=== PATIENT | male | born 1970 | race Caucasian/White ===

== ENCOUNTER 2018-02-11 22:27 | Inpatient (IN) | payer OTHER ==
[~2018-02-11] VITALS: Ht 170.2 cm; Wt 62.0 kg
[2018-02-11 23:23] LABS: PTT 44.2 SEC (25-37)
[2018-02-11 23:26] LABS: ALBUMIN 2.8 g/dL (3.2-4.8); CHLORIDE 70 mEq/L (99-109); POTASSIUM 3.4 mEq/L (3.7-5.4)
[2018-02-11 23:29] LABS: GLUCOSE 105 mg/dL (70-99); TOTAL PROTEIN 5.1 g/dL (6.4-8.3)
[2018-02-11 23:31] LABS: SERUM ETHYL ALCOHOL < 10 mg/dL
[2018-02-11 23:32] LABS: CREATININE 0.8 mg/dL (0.6-1.3)
[2018-02-11 23:33] LABS: ALKALINE PHOSPHATASE 380 IU/L (3-129)
[2018-02-11 23:34] LABS: AST (GOT) 502 IU/L (2-34); UREA NITROGEN (BUN) 11 mg/dL (9-23)
[2018-02-11 23:36] LABS: ACETAMINOPHEN (TYLENOL) < 10 mcg/mL (10-30); ALT (GPT) 132 IU/L (3-49); SALICYLATE < 5.0 MG/DL (15-30); TROP-I INTERPRETATION NEGATIVE; TROPONIN-I 0.01 ng/mL (0.0-0.30)
[2018-02-11 23:37] LABS: LIPASE 57 U/L (1.0-51.0)
[2018-02-11 23:40] LABS: GFR ESTIMATE (CALCULATED) > 59 mL/min/ (58.99-99999); SODIUM 117 mEq/L (136-147)
[2018-02-12] VITALS (17 sets, daily range): BP systolic 93–125; BP diastolic 66–93
[2018-02-12 01:08] LABS: MCH 35.8 PG (29.0-34.0); MCV 94.3 FL (86-99); NRBC (%) 0.2 /100 WBC (0-0); RBC DIS.WIDTH-CV 17.2 % (11.8-14.6); RED BLOOD COUNT 3.35 M/uL (4.00-5.50); WHITE BLOOD COUNT 10.6 K/uL (4.1-10.2)
[2018-02-12 01:12] LABS: HEMATOCRIT 38.2 % (38.0-50.0)
[2018-02-12 01:16] LABS: PLATELET COUNT 130 K/uL (156-360)
[2018-02-12 02:21] LABS: MAGNESIUM 1.5 mg/dL (1.3-2.7)
[2018-02-12 09:05] LABS: CHLORIDE 81 MEQ/L (99-109); CREATININE 0.8 MG/DL (0.6-1.3); GFR ESTIMATE (CALCULATED) > 59 mL/min/ (58.99-99999); GLUCOSE 79 mg/dL (70-99); POTASSIUM 3.2 MEQ/L (3.7-5.4); SODIUM 120 MEQ/L (136-147); UREA NITROGEN (BUN) 11 mg/dL (9-23)
[2018-02-12 09:57] LABS: MAGNESIUM 1.7 mg/dl (1.3-2.7)
[2018-02-12 15:05] LABS: PTT 44.1 SEC (25-37)
[2018-02-12 15:36] LABS: CHLORIDE 83 MEQ/L (99-109); CREATININE 0.7 MG/DL (0.6-1.3); GFR ESTIMATE (CALCULATED) > 59 mL/min/ (58.99-99999); GLUCOSE 76 mg/dL (70-99); POTASSIUM 3.3 MEQ/L (3.7-5.4); UREA NITROGEN (BUN) 10 mg/dL (9-23)
[2018-02-12 15:37] LABS: SODIUM 118 MEQ/L (136-147)
[2018-02-12 18:11] LABS: UR CREATININE CONCENTRATION 91.3 MG/DL
[2018-02-12 20:21] LABS: CHLORIDE 85 MEQ/L (99-109); CREATININE 0.8 MG/DL (0.6-1.3); GFR ESTIMATE (CALCULATED) > 59 mL/min/ (58.99-99999); GLUCOSE 94 mg/dL (70-99); POTASSIUM 3.2 MEQ/L (3.7-5.4); SODIUM 121 MEQ/L (136-147); UREA NITROGEN (BUN) 10 mg/dL (9-23)
[2018-02-13] VITALS (19 sets, daily range): BP systolic 85–114; BP diastolic 37–83
[2018-02-13 00:42] LABS: HEMATOCRIT 27.7 % (38.0-50.0); HEMOGLOBIN 10.4 G/DL (12.5-16.6); MCHC 37.5 G/DL (30.0-36.0); MCV 95.8 FL (86-99); NRBC (%) 0.3 /100 WBC (0-0); PLATELET COUNT 118 K/uL (156-360); RBC DIS.WIDTH-CV 17.7 % (11.8-14.6); RBC DIS.WIDTH-SD 62.2 % (39-53); RED BLOOD COUNT 2.89 M/uL (4.00-5.50); WHITE BLOOD COUNT 9.8 K/uL (4.1-10.2)
[2018-02-13 00:59] LABS: POTASSIUM 3.7 mEq/L (3.7-5.4); SODIUM 125 mEq/L (136-147)
[2018-02-13 01:00] LABS: CHLORIDE 87 mEq/L (99-109)
[2018-02-13 01:01] LABS: GLUCOSE 83 mg/dL (70-99)
[2018-02-13 01:05] LABS: CREATININE 0.7 mg/dL (0.6-1.3); GFR ESTIMATE (CALCULATED) > 59 mL/min/ (58.99-99999)
[2018-02-13 01:06] LABS: UREA NITROGEN (BUN) 10 mg/dL (9-23)
[2018-02-13 05:41] LABS: INTER. NORMALIZED RATIO 2.5
[2018-02-13 06:16] LABS: ALBUMIN 2.3 G/DL (3.2-4.8); ALKALINE PHOSPHATASE 234 IU/L (3-129); ALT (GPT) 90 IU/L (3-49); AST (GOT) 347 IU/L (2-34); CHLORIDE 91 MEQ/L (99-109); CREATININE 0.7 MG/DL (0.6-1.3); DIRECT BILIRUBIN 18.8 mg/dL (0.0-0.3); GFR ESTIMATE (CALCULATED) > 59 mL/min/ (58.99-99999); GLUCOSE 97 mg/dL (70-99); POTASSIUM 3.4 MEQ/L (3.7-5.4); SODIUM 127 MEQ/L (136-147); TOTAL BILIRUBIN 26.1 MG/DL (0.0-1.0); UREA NITROGEN (BUN) 10 mg/dL (9-23)
[2018-02-13 23:22] LABS: CHLORIDE 94 mEq/L (99-109); SODIUM 130 mEq/L (136-147)
[2018-02-13 23:23] LABS: GLUCOSE 145 mg/dL (70-99)
[2018-02-13 23:27] LABS: CREATININE 0.7 mg/dL (0.6-1.3); GFR ESTIMATE (CALCULATED) > 59 mL/min/ (58.99-99999)
[2018-02-13 23:28] LABS: UREA NITROGEN (BUN) 7 mg/dL (9-23)
[2018-02-13 23:31] LABS: POTASSIUM 2.7 mEq/L (3.7-5.4)
[2018-02-14] VITALS (19 sets, daily range): BP systolic 79–130; BP diastolic 58–92
[2018-02-14 06:14] LABS: PTT 36.8 SEC (25-37)
[2018-02-14 06:19] LABS: ALBUMIN 2.3 G/DL (3.2-4.8); ALKALINE PHOSPHATASE 223 IU/L (3-129); ALT (GPT) 80 IU/L (3-49); AST (GOT) 274 IU/L (2-34); CHLORIDE 93 MEQ/L (99-109); CREATININE 0.7 MG/DL (0.6-1.3); GFR ESTIMATE (CALCULATED) > 59 mL/min/ (58.99-99999); POTASSIUM 3.2 MEQ/L (3.7-5.4); SODIUM 129 MEQ/L (136-147); TOTAL BILIRUBIN 26.5 MG/DL (0.0-1.0); TOTAL PROTEIN 3.8 G/DL (6.4-8.3); UREA NITROGEN (BUN) 6 mg/dL (9-23)
[2018-02-14 06:25] LABS: GLUCOSE 106 mg/dL (70-99)
[2018-02-14 12:03] LABS: HEPATITIS B SURFACE ANTIGEN Nonreactive
[2018-02-14 12:04] LABS: ANTI-HEPATITIS A VIRUS (IGM) Nonreactive; HEPATITIS C ANTIBODY Nonreactive
[2018-02-14 12:06] LABS: ANTI-HEPATITIS B CORE (IGM) Nonreactive
[2018-02-14 13:44] LABS: CHLORIDE 96 MEQ/L (99-109); CREATININE 0.7 MG/DL (0.6-1.3); GFR ESTIMATE (CALCULATED) > 59 mL/min/ (58.99-99999); GLUCOSE 109 mg/dL (70-99); SODIUM 130 MEQ/L (136-147); UREA NITROGEN (BUN) 5 mg/dL (9-23)
[2018-02-14 13:45] LABS: POTASSIUM 4.1 MEQ/L (3.7-5.4)
[2018-02-14 14:59] LABS: TYPE OF FLUID PERITONEAL
[2018-02-14 15:25] LABS: BODY FLUID AMYLASE 50 U/L
[2018-02-14 15:53] LABS: BODY FLUID PROTEIN < 3.0 G/DL
[2018-02-14 15:54] LABS: APPEARANCE YELLOW-CLEAR; BODY FLUID EOSINOPHILS 0 % (0-25); BODY FLUID RBC'S < 1000 /MM^3 (0-100); BODY FLUID WBC'S 36 /MM^3 (0-500); MONONUCLEAR WBC'S 76 %; POLYNUCLEAR WBC'S 24 % (0-25)
[2018-02-14 18:46] LABS: CHLORIDE 97 MEQ/L (99-109); CREATININE 0.8 MG/DL (0.6-1.3); GFR ESTIMATE (CALCULATED) > 59 mL/min/ (58.99-99999); GLUCOSE 93 mg/dL (70-99); POTASSIUM 3.9 MEQ/L (3.7-5.4); SODIUM 131 MEQ/L (136-147); UREA NITROGEN (BUN) 5 mg/dL (9-23)
[2018-02-15 05:06] VITALS: BP 95/65
[2018-02-15 05:51] LABS: HEMATOCRIT 26.1 % (38.0-50.0); HEMOGLOBIN 9.2 G/DL (12.5-16.6); MCH 35.5 PG (29.0-34.0); MCHC 35.2 G/DL (30.0-36.0); MCV 100.8 FL (86-99); NRBC (%) 0.3 /100 WBC (0-0); PLATELET COUNT 98 K/uL (156-360); RBC DIS.WIDTH-CV 19.4 % (11.8-14.6); RBC DIS.WIDTH-SD 70.3 % (39-53); RED BLOOD COUNT 2.59 M/uL (4.00-5.50); WHITE BLOOD COUNT 9.4 K/uL (4.1-10.2)
[2018-02-15 06:04] LABS: ALBUMIN 2.4 G/DL (3.2-4.8); ALKALINE PHOSPHATASE 179 IU/L (3-129); ALT (GPT) 60 IU/L (3-49); AST (GOT) 195 IU/L (2-34); CHLORIDE 99 MEQ/L (99-109); CREATININE 0.7 MG/DL (0.6-1.3); GFR ESTIMATE (CALCULATED) > 59 mL/min/ (58.99-99999); GLUCOSE 93 mg/dL (70-99); POTASSIUM 3.2 MEQ/L (3.7-5.4); SODIUM 134 MEQ/L (136-147); TOTAL BILIRUBIN 24.4 MG/DL (0.0-1.0); TOTAL PROTEIN 3.9 G/DL (6.4-8.3); UREA NITROGEN (BUN) 5 mg/dL (9-23)
[2018-02-15 07:09] VITALS: BP 101/62
[2018-02-15 11:49] VITALS: BP 93/64
[2018-02-15 14:31] VITALS: BP 101/74
[2018-02-15 19:40] VITALS: BP 108/78
[2018-02-15 23:44] VITALS: BP 106/70
[2018-02-16 03:01] LABS: ALBUMIN 2.3 g/dL (3.2-4.8); CHLORIDE 102 mEq/L (99-109); POTASSIUM 3.6 mEq/L (3.7-5.4); SODIUM 135 mEq/L (136-147)
[2018-02-16 03:04] LABS: GLUCOSE 111 mg/dL (70-99); TOTAL PROTEIN 4.1 g/dL (6.4-8.3)
[2018-02-16 03:07] LABS: CREATININE 0.7 mg/dL (0.6-1.3); GFR ESTIMATE (CALCULATED) > 59 mL/min/ (58.99-99999)
[2018-02-16 03:08] LABS: UREA NITROGEN (BUN) 4 mg/dL (9-23)
[2018-02-16 03:10] LABS: ALT (GPT) 70 IU/L (3-49)
[2018-02-16 03:13] LABS: ALKALINE PHOSPHATASE 229 IU/L (3-129); AST (GOT) 197 IU/L (2-34)
[2018-02-16 03:17] LABS: TOTAL BILIRUBIN 26.8 mg/dL (0.0-1.0)
[2018-02-16 03:30] VITALS: BP 112/74
[2018-02-16 07:50] VITALS: BP 98/68
[2018-02-16 09:08] LABS: MAGNESIUM 1.7 mg/dL (1.3-2.7)
[2018-02-16 10:44] LABS: PHOSPHORUS < 1.0 mg/dL (2.5-4.9)
[2018-02-16 12:25] VITALS: BP 99/68
[2018-02-16 16:38] VITALS: BP 105/73
[2018-02-16 19:58] VITALS: BP 93/60
[2018-02-17 00:11] VITALS: BP 98/65
[2018-02-17 04:06] VITALS: BP 95/64
[2018-02-17 06:38] LABS: ALBUMIN 2.1 G/DL (3.2-4.8); ALKALINE PHOSPHATASE 173 IU/L (3-129); ALT (GPT) 52 IU/L (3-49); AST (GOT) 141 IU/L (2-34); CHLORIDE 100 MEQ/L (99-109); CREATININE 0.9 MG/DL (0.6-1.3); GFR ESTIMATE (CALCULATED) > 59 mL/min/ (58.99-99999); GLUCOSE 84 mg/dL (70-99); PHOSPHORUS 1.2 mg/dL (2.5-4.9); SODIUM 135 MEQ/L (136-147); TOTAL BILIRUBIN 26.4 MG/DL (0.0-1.0); TOTAL PROTEIN 3.7 G/DL (6.4-8.3); UREA NITROGEN (BUN) 7 mg/dL (9-23)
[2018-02-17 09:14] LABS: HEMOGLOBIN 10.9 G/DL (12.5-16.6); NRBC (%) 0.2 /100 WBC (0-0); PLATELET COUNT 126 K/uL (156-360); RBC DIS.WIDTH-CV 20.9 % (11.8-14.6); WHITE BLOOD COUNT 12.2 K/uL (4.1-10.2)
[2018-02-17 09:15] LABS: MCV 106.1 FL (86-99); RED BLOOD COUNT 3.11 M/uL (4.00-5.50)
[2018-02-17 15:20] VITALS: BP 91/58
[2018-02-17 19:44] VITALS: BP 98/66
[2018-02-18] VITALS (7 sets, daily range): BP systolic 90–1047; BP diastolic 54–67
[2018-02-18 06:16] LABS: HEMATOCRIT 33.4 % (38.0-50.0); HEMOGLOBIN 11.2 G/DL (12.5-16.6); MCH 35.4 PG (29.0-34.0); MCHC 33.5 G/DL (30.0-36.0); MCV 105.7 FL (86-99); NRBC (%) 0.2 /100 WBC (0-0); PLATELET COUNT 141 K/uL (156-360); RBC DIS.WIDTH-CV 20.4 % (11.8-14.6); RED BLOOD COUNT 3.16 M/uL (4.00-5.50); WHITE BLOOD COUNT 12.3 K/uL (4.1-10.2)
[2018-02-18 06:51] LABS: ALBUMIN 2.3 G/DL (3.2-4.8); ALKALINE PHOSPHATASE 200 IU/L (3-129); ALT (GPT) 45 IU/L (3-49); AST (GOT) 109 IU/L (2-34); CHLORIDE 99 MEQ/L (99-109); CREATININE 1.1 MG/DL (0.6-1.3); GFR ESTIMATE (CALCULATED) > 59 mL/min/ (58.99-99999); GLUCOSE 125 mg/dL (70-99); SODIUM 133 MEQ/L (136-147); TOTAL BILIRUBIN 27.2 MG/DL (0.0-1.0); TOTAL PROTEIN 3.8 G/DL (6.4-8.3); UREA NITROGEN (BUN) 12 mg/dL (9-23)
[2018-02-19 06:10] LABS: ALKALINE PHOSPHATASE 161 IU/L (3-129); ALT (GPT) 41 IU/L (3-49); AST (GOT) 91 IU/L (2-34); CHLORIDE 100 MEQ/L (99-109); GFR ESTIMATE (CALCULATED) > 59 mL/min/ (58.99-99999); GLUCOSE 102 mg/dL (70-99); POTASSIUM 3.8 MEQ/L (3.7-5.4); SODIUM 131 MEQ/L (136-147); TOTAL BILIRUBIN 26.8 MG/DL (0.0-1.0); TOTAL PROTEIN 3.6 G/DL (6.4-8.3); UREA NITROGEN (BUN) 13 mg/dL (9-23)
[2018-02-19 08:00] VITALS: BP 96/52
[2018-02-19 16:02] VITALS: BP 110/69
[2018-02-20 00:01] VITALS: BP 87/53
[2018-02-20 03:48] VITALS: BP 103/64
[2018-02-20 05:56] LABS: HEMATOCRIT 29.5 % (38.0-50.0); HEMOGLOBIN 10.1 G/DL (12.5-16.6); MCH 35.3 PG (29.0-34.0); MCHC 34.2 G/DL (30.0-36.0); MCV 103.1 FL (86-99); PLATELET COUNT 165 K/uL (156-360); RBC DIS.WIDTH-CV 19.2 % (11.8-14.6); RBC DIS.WIDTH-SD 73.2 % (39-53); RED BLOOD COUNT 2.86 M/uL (4.00-5.50); WHITE BLOOD COUNT 11.9 K/uL (4.1-10.2)
[2018-02-20 07:40] VITALS: BP 94/59
[2018-02-20 11:50] VITALS: BP 108/74
[2018-02-20 23:30] VITALS: BP 124/81
[2018-02-21 06:44] LABS: CHLORIDE 100 MEQ/L (99-109); GFR ESTIMATE (CALCULATED) 53 mL/min/ (58.99-99999); GLUCOSE 96 mg/dL (70-99); POTASSIUM 3.8 MEQ/L (3.7-5.4); SODIUM 133 MEQ/L (136-147); UREA NITROGEN (BUN) 19 mg/dL (9-23)
[2018-02-21 06:45] LABS: CREATININE 1.5 MG/DL (0.6-1.3)
[2018-02-21 07:11] VITALS: BP 126/87
[2018-02-21 11:02] VITALS: BP 118/80
[2018-02-21] MEDS ORDERED: XIFAXAN550 MG PO (15:12)
[2018-02-21] MEDS ORDERED: RISPERIDONE0.5 MG PO (15:12)
[2018-02-21] MEDS ORDERED: Chronulac,Cephulac,E PO (15:12)
[2018-02-21] MEDS ORDERED: KLOR-CON20 MEQ PO (15:12)
[2018-02-21] MEDS ORDERED: FOLIC ACID1 MG PO (15:13)
[2018-02-21] MEDS ORDERED: FAMOTIDINE20 MG PO (15:13)
[2018-02-21] MEDS ORDERED: MAG-OXIDE400 MG PO (15:13)
[2018-02-21] MEDS ORDERED: THERAGRAN1 TABLET PO (15:13)
[2018-02-21] MEDS ORDERED: FUROSEMIDE20 MG PO (15:13)
[2018-02-21] MEDS ORDERED: THIAMINE HCL100 MG PO (15:14)
[2018-02-21 15:16] VITALS: BP 130/65
[2018-02-21] MEDS ORDERED: SPIRONOLACTONE50 MG PO (15:21)
== END 2018-02-21 17:53 | DRG 442 ==
LOC: EDBD 22:27 → EME 22:27 → EDOF 02-12 03:22 → 4EAST 02-12 03:22 → 4WEST 02-12 03:22 → ENRESERV 02-12 03:23 → 4WEST 02-12 04:21 → ENRESERV 02-14 22:15 → 4EAST 02-14 23:32 → ENRESERV 02-16 13:40 → 4EAST 02-16 13:59 → ENRESERV 02-16 14:30 → 5SOUTH 02-16 16:26
PROVIDERS: Emergency Medicine; Hospitalist; Internal Medicine; Internal Medicine Critical Care Medicine; Internal Medicine Pulmonary Disease; Physician Assistant Medical
PROC: 0W9G3ZZ Drainage of Peritoneal Cavity, Percutaneous Approach (ICD-10-PCS; principal; 2018-02-14)
PROC: 0W9G3ZZ Drainage of Peritoneal Cavity, Percutaneous Approach (ICD-10-PCS; 2018-02-18)
DX: K72.90 Hepatic failure, unspecified without coma (principal); K70.31 Alcoholic cirrhosis of liver with ascites; K70.11 Alcoholic hepatitis with ascites; F10.20 Alcohol dependence, uncomplicated; D69.6 Thrombocytopenia, unspecified; K76.6 Portal hypertension; K76.0 Fatty (change of) liver, not elsewhere classified; I85.00 Esophageal varices without bleeding; E87.1 Hypo-osmolality and hyponatremia; E87.6 Hypokalemia; E87.2 Acidosis; E87.70 Fluid overload, unspecified; E87.8 Other disorders of electrolyte and fluid balance, not elsewhere classified; D68.9 Coagulation defect, unspecified; K59.00 Constipation, unspecified; R27.8 Other lack of coordination; F17.200 Nicotine dependence, unspecified, uncomplicated
CPT/HCPCS: 49083; 70450; 71045; 74177; 80047; 80048; 80048 91; 80053; 80074; 82140; 82150 91; 82248; 82436; 82570; 83605; 83690; 83735; 83935; 84100; 84133; 84157; 84300; 84484; 85027; 85610; 85730; 87040; 87070; 87205; 87641; 88108; 89051; 93005; 97530 GO; 97530 GP; 99281; 99285; A6214; G0480; J1956; J2543; J3411; J3475; J3480; J7030; J7050; P9047

== ENCOUNTER 2018-02-21 16:20 | Inpatient (IN) | payer OTHER ==
[~2018-02-21] VITALS: Ht 170.2 cm; Wt 67.4 kg
[~2018-02-21 16:20] MED LIST: Chronulac,Cephulac,E PO; FAMOTIDINE20 MG PO; FOLIC ACID1 MG PO; FUROSEMIDE20 MG PO; KLOR-CON20 MEQ PO; MAG-OXIDE400 MG PO; RISPERIDONE0.5 MG PO; SPIRONOLACTONE50 MG PO; THERAGRAN1 TABLET PO; THIAMINE HCL100 MG PO; XIFAXAN550 MG PO
[2018-02-21 18:01] VITALS: BP 116/60
[2018-02-21 23:42] VITALS: BP 106/66
[2018-02-22 05:08] VITALS: BP 87/53
[2018-02-22 05:42] VITALS: BP 98/60
[2018-02-22 06:11] LABS: HEMATOCRIT 27.6 % (38.0-50.0); HEMOGLOBIN 9.6 G/DL (12.5-16.6); MCH 35.7 PG (29.0-34.0); MCHC 34.8 G/DL (30.0-36.0); MCV 102.6 FL (86-99); PLATELET COUNT 168 K/uL (156-360); RBC DIS.WIDTH-CV 17.9 % (11.8-14.6); RBC DIS.WIDTH-SD 66.8 % (39-53); RED BLOOD COUNT 2.69 M/uL (4.00-5.50); WHITE BLOOD COUNT 13.2 K/uL (4.1-10.2)
[2018-02-22 06:35] LABS: ALBUMIN 1.9 G/DL (3.2-4.8); ALKALINE PHOSPHATASE 160 IU/L (3-129); ALT (GPT) 34 IU/L (3-49); AST (GOT) 80 IU/L (2-34); CHLORIDE 100 MEQ/L (99-109); CREATININE 1.8 MG/DL (0.6-1.3); GFR ESTIMATE (CALCULATED) 43 mL/min/ (58.99-99999); GLUCOSE 78 mg/dL (70-99); POTASSIUM 3.5 MEQ/L (3.7-5.4); SODIUM 135 MEQ/L (136-147); TOTAL BILIRUBIN 26.2 MG/DL (0.0-1.0); TOTAL PROTEIN 3.4 G/DL (6.4-8.3); UREA NITROGEN (BUN) 21 mg/dL (9-23)
[2018-02-22 15:48] VITALS: BP 102/61
[2018-02-23 01:02] VITALS: BP 121/83
[2018-02-23 05:16] VITALS: BP 110/62
[2018-02-23 14:44] LABS: HEMATOCRIT 30.7 % (38.0-50.0); HEMOGLOBIN 10.5 G/DL (12.5-16.6); MCHC 34.2 G/DL (30.0-36.0); MCV 105.1 FL (86-99); PLATELET COUNT 186 K/uL (156-360); RBC DIS.WIDTH-CV 17.3 % (11.8-14.6); RBC DIS.WIDTH-SD 66.6 % (39-53); RED BLOOD COUNT 2.92 M/uL (4.00-5.50); WHITE BLOOD COUNT 15.6 K/uL (4.1-10.2)
[2018-02-23 15:09] LABS: CHLORIDE 97 MEQ/L (99-109); GFR ESTIMATE (CALCULATED) 38 mL/min/ (58.99-99999); SODIUM 132 MEQ/L (136-147); UREA NITROGEN (BUN) 24 mg/dL (9-23)
[2018-02-23 15:10] LABS: GLUCOSE 124 mg/dL (70-99)
[2018-02-23 15:12] LABS: ALBUMIN 2.3 G/DL (3.2-4.8); ALKALINE PHOSPHATASE 191 IU/L (3-129); ALT (GPT) 40 IU/L (3-49); AST (GOT) 88 IU/L (2-34); TOTAL PROTEIN 3.7 G/DL (6.4-8.3)
[2018-02-23 15:17] LABS: TOTAL BILIRUBIN 29.6 MG/DL (0.0-1.0)
[2018-02-23 16:27] VITALS: BP 97/65
[2018-02-24 04:52] VITALS: BP 97/67
[2018-02-24 15:45] VITALS: BP 111/71
[2018-02-25 05:18] VITALS: BP 102/57
[2018-02-25 06:49] LABS: BASOPHIL (%) 0.2 % (0-1); EOSINOPHIL (%) 0.7 % (0-5); EOSINOPHIL COUNT 0.1 K/uL (0-0.3); HEMATOCRIT 29.5 % (38.0-50.0); HEMOGLOBIN 10.2 G/DL (12.5-16.6); IMMATURE GRANULOCYTE (%) 2.6 % (0.0-0.7); LYMPHOCYTE (%) 7.7 % (15-42); MCH 35.3 PG (29.0-34.0); MCHC 34.6 G/DL (30.0-36.0); MCV 102.1 FL (86-99); MONOCYTE (%) 11.9 % (3-12); MONOCYTE COUNT 1.5 K/uL (0-0.8); NEUTROPHIL (%) 76.9 % (45-76); NEUTROPHIL COUNT 9.9 K/uL (1.8-6.4); PLATELET COUNT 196 K/uL (156-360); RBC DIS.WIDTH-CV 16.2 % (11.8-14.6); RBC DIS.WIDTH-SD 59.7 % (39-53); RED BLOOD COUNT 2.89 M/uL (4.00-5.50); WHITE BLOOD COUNT 12.9 K/uL (4.1-10.2)
[2018-02-25 07:12] LABS: CHLORIDE 98 MEQ/L (99-109); GFR ESTIMATE (CALCULATED) 29 mL/min/ (58.99-99999); POTASSIUM 4.7 MEQ/L (3.7-5.4); SODIUM 129 MEQ/L (136-147); UREA NITROGEN (BUN) 30 mg/dL (9-23)
[2018-02-25 07:13] LABS: CREATININE 2.5 MG/DL (0.6-1.3); GLUCOSE 81 mg/dL (70-99)
[2018-02-25 14:19] VITALS: BP 129/62
[2018-02-26 04:19] VITALS: BP 100/59
[2018-02-26 16:00] VITALS: BP 107/77
[2018-02-27 05:31] VITALS: BP 87/52
[2018-02-27 06:29] VITALS: BP 90/60
[2018-02-27 07:49] LABS: BASOPHIL (%) 0.3 % (0-1); EOSINOPHIL (%) 1.7 % (0-5); EOSINOPHIL COUNT 0.2 K/uL (0-0.3); HEMATOCRIT 28.9 % (38.0-50.0); HEMOGLOBIN 10.2 G/DL (12.5-16.6); IMMATURE GRANULOCYTE (%) 3.2 % (0.0-0.7); LYMPHOCYTE (%) 9.3 % (15-42); LYMPHOCYTE COUNT 1.2 K/uL (1.0-2.8); MCH 35.8 PG (29.0-34.0); MCHC 35.3 G/DL (30.0-36.0); MCV 101.4 FL (86-99); MONOCYTE (%) 11.9 % (3-12); MONOCYTE COUNT 1.5 K/uL (0-0.8); NEUTROPHIL (%) 73.6 % (45-76); NEUTROPHIL COUNT 9.1 K/uL (1.8-6.4); PLATELET COUNT 216 K/uL (156-360); RBC DIS.WIDTH-CV 15.6 % (11.8-14.6); RBC DIS.WIDTH-SD 57.6 % (39-53); RED BLOOD COUNT 2.85 M/uL (4.00-5.50); WHITE BLOOD COUNT 12.4 K/uL (4.1-10.2)
[2018-02-27 07:56] LABS: ALBUMIN 1.9 G/DL (3.2-4.8); ALKALINE PHOSPHATASE 184 IU/L (3-129); ALT (GPT) 35 IU/L (3-49); AST (GOT) 89 IU/L (2-34); CHLORIDE 99 MEQ/L (99-109); GFR ESTIMATE (CALCULATED) 19 mL/min/ (58.99-99999); GLUCOSE 80 mg/dL (70-99); SODIUM 128 MEQ/L (136-147); TOTAL BILIRUBIN 26.3 MG/DL (0.0-1.0); TOTAL PROTEIN 3.6 G/DL (6.4-8.3); UREA NITROGEN (BUN) 38 mg/dL (9-23)
[2018-02-27 07:57] LABS: CREATININE 3.7 MG/DL (0.6-1.3)
[2018-02-27 09:09] VITALS: BP 92/64
[2018-02-27 16:00] VITALS: BP 93/62
[2018-02-27 16:16] LABS: INTER. NORMALIZED RATIO 1.6
[2018-02-27 16:57] LABS: PTT 36.8 SEC (25-37)
== END 2018-02-27 15:53 | DRG 945 ==
LOC: 3WEST 16:20 → ENPENDDIS 02-23 → 3WEST 02-23 15:17
PROVIDERS: Family Medicine Sports Medicine; Physical Medicine & Rehabilitation Pain Medicine
PROC: F07M0ZZ Range of Motion and Joint Mobility Treatment of Musculoskeletal System - Whole Body (ICD-10-PCS; principal; 2018-02-21)
DX: R53.1 Weakness (principal); K72.90 Hepatic failure, unspecified without coma; K76.7 Hepatorenal syndrome; N17.9 Acute kidney failure, unspecified; R26.2 Difficulty in walking, not elsewhere classified; K70.11 Alcoholic hepatitis with ascites; K70.31 Alcoholic cirrhosis of liver with ascites; I85.10 Secondary esophageal varices without bleeding; K76.6 Portal hypertension; K76.0 Fatty (change of) liver, not elsewhere classified; F10.20 Alcohol dependence, uncomplicated; R44.3 Hallucinations, unspecified; R64 Cachexia; Z68.23 Body mass index [BMI] 23.0-23.9, adult; E87.1 Hypo-osmolality and hyponatremia; E87.6 Hypokalemia; D69.6 Thrombocytopenia, unspecified; E83.51 Hypocalcemia; D63.8 Anemia in other chronic diseases classified elsewhere; D72.829 Elevated white blood cell count, unspecified; E77.8 Other disorders of glycoprotein metabolism; J98.11 Atelectasis; Z91.19 Patient's noncompliance with other medical treatment and regimen; F17.200 Nicotine dependence, unspecified, uncomplicated
CPT/HCPCS: 80048; 80053; 82140; 82948; 85025; 85027; 85610; 85730; 92523 GN; 97110 GO; 97530 GP; A6214

== ENCOUNTER 2018-02-27 15:39 | Inpatient (IN) | payer SELFPAY ==
[~2018-02-27] VITALS: Ht 160 cm; Wt 68.8 kg
[2018-02-27 18:18] VITALS: BP 117/85
[2018-02-27 20:55] LABS: APPEARANCE SL.HAZY ((CLEAR)); BILIRUBIN MODERATE; BLOOD NEGATIVE; COLOR AMBER ((YELLOW)); GLUCOSE (STRIP) NEGATIVE; KETONES NEGATIVE; LEUKOCYTES NEGATIVE; NITRITE NEGATIVE; PROTEIN (STRIP) 100; SPECIFIC GRAVITY 1.009 (1.000-1.030)
[2018-02-27 20:58] LABS: ICTOTEST ND
[2018-02-27 21:02] LABS: BACTERIA RARE /HPF; EPITHELIAL CELLS RARE /HPF; HYALINE CASTS 0-5 /LPF; MUCUS TRACE /LPF
[2018-02-27 21:46] VITALS: BP 103/62
[2018-02-27 22:30] LABS: UR CREATININE CONCENTRATION 47.3 MG/DL
[2018-02-28 00:46] VITALS: BP 98/68
[2018-02-28 06:50] VITALS: BP 99/65
[2018-02-28 07:18] LABS: ALBUMIN 2.8 G/DL (3.2-4.8); ALKALINE PHOSPHATASE 145 IU/L (3-129); ALT (GPT) 28 IU/L (3-49); AST (GOT) 65 IU/L (2-34); CHLORIDE 98 MEQ/L (99-109); GLUCOSE 81 mg/dL (70-99); MAGNESIUM 2.3 mg/dl (1.3-2.7); POTASSIUM 4.7 MEQ/L (3.7-5.4); SODIUM 129 MEQ/L (136-147); TOTAL BILIRUBIN 26.8 MG/DL (0.0-1.0); UREA NITROGEN (BUN) 44 mg/dL (9-23)
[2018-02-28 07:43] LABS: CREATININE 4.6 MG/DL (0.6-1.3); GFR ESTIMATE (CALCULATED) 15 mL/min/ (58.99-99999); PHOSPHORUS 4.3 mg/dL (2.5-4.9)
[2018-02-28 11:10] VITALS: BP 107/76
[2018-02-28 15:45] VITALS: BP 107/70
[2018-02-28 20:49] VITALS: BP 111/78
[2018-03-01 02:05] VITALS: BP 123/69
[2018-03-01 05:28] VITALS: BP 109/68
[2018-03-01 06:15] LABS: HEMATOCRIT 28.5 % (38.0-50.0); HEMOGLOBIN 9.8 G/DL (12.5-16.6); MCH 34.9 PG (29.0-34.0); MCHC 34.4 G/DL (30.0-36.0); MCV 101.4 FL (86-99); PLATELET COUNT 241 K/uL (156-360); RBC DIS.WIDTH-CV 15.1 % (11.8-14.6); RBC DIS.WIDTH-SD 56.3 % (39-53); RED BLOOD COUNT 2.81 M/uL (4.00-5.50); WHITE BLOOD COUNT 13.7 K/uL (4.1-10.2)
[2018-03-01 06:39] LABS: ALBUMIN 2.7 G/DL (3.2-4.8); ALKALINE PHOSPHATASE 167 IU/L (3-129); ALT (GPT) 31 IU/L (3-49); AST (GOT) 75 IU/L (2-34); CHLORIDE 96 MEQ/L (99-109); GFR ESTIMATE (CALCULATED) 13 mL/min/ (58.99-99999); GLUCOSE 102 mg/dL (70-99); PHOSPHORUS 4.2 mg/dL (2.5-4.9); POTASSIUM 4.4 MEQ/L (3.7-5.4); SODIUM 126 MEQ/L (136-147); TOTAL BILIRUBIN 29.3 MG/DL (0.0-1.0); UREA NITROGEN (BUN) 48 mg/dL (9-23)
[2018-03-01 07:25] VITALS: BP 100/61
[2018-03-01 11:23] VITALS: BP 107/77
[2018-03-01 16:08] VITALS: BP 118/80
[2018-03-01 20:40] VITALS: BP 118/88
[2018-03-02] VITALS (7 sets, daily range): BP systolic 102–135; BP diastolic 72–89
[2018-03-02 06:50] LABS: ALBUMIN 2.8 G/DL (3.2-4.8); ALKALINE PHOSPHATASE 161 IU/L (3-129); ALT (GPT) 31 IU/L (3-49); AST (GOT) 68 IU/L (2-34); CHLORIDE 98 MEQ/L (99-109); CREATININE 5.2 MG/DL (0.6-1.3); GFR ESTIMATE (CALCULATED) 13 mL/min/ (58.99-99999); GLUCOSE 111 mg/dL (70-99); PHOSPHORUS 4.6 mg/dL (2.5-4.9); POTASSIUM 4.3 MEQ/L (3.7-5.4); SODIUM 129 MEQ/L (136-147); TOTAL BILIRUBIN 26.6 MG/DL (0.0-1.0); UREA NITROGEN (BUN) 47 mg/dL (9-23)
[2018-03-03 00:54] VITALS: BP 98/60
[2018-03-03 01:26] VITALS: BP 106/63
[2018-03-03 06:19] LABS: BASOPHIL (%) 0.3 % (0-1); BASOPHIL COUNT 0.1 K/uL (0-0.1); EOSINOPHIL (%) 3.1 % (0-5); EOSINOPHIL COUNT 0.5 K/uL (0-0.3); HEMATOCRIT 27.5 % (38.0-50.0); HEMOGLOBIN 9.5 G/DL (12.5-16.6); IMMATURE GRANULOCYTE (%) 3.2 % (0.0-0.7); LYMPHOCYTE (%) 6.7 % (15-42); MCH 35.1 PG (29.0-34.0); MCHC 34.5 G/DL (30.0-36.0); MCV 101.5 FL (86-99); MONOCYTE COUNT 1.4 K/uL (0-0.8); NEUTROPHIL (%) 77.7 % (45-76); PLATELET COUNT 248 K/uL (156-360); RBC DIS.WIDTH-CV 15.3 % (11.8-14.6); RBC DIS.WIDTH-SD 57.1 % (39-53); RED BLOOD COUNT 2.71 M/uL (4.00-5.50); WHITE BLOOD COUNT 15.5 K/uL (4.1-10.2)
[2018-03-03 06:49] LABS: ALBUMIN 2.6 G/DL (3.2-4.8); ALKALINE PHOSPHATASE 141 IU/L (3-129); ALT (GPT) 31 IU/L (3-49); AST (GOT) 74 IU/L (2-34); CHLORIDE 100 MEQ/L (99-109); CREATININE 5.4 MG/DL (0.6-1.3); GFR ESTIMATE (CALCULATED) 12 mL/min/ (58.99-99999); GLUCOSE 90 mg/dL (70-99); PHOSPHORUS 4.5 mg/dL (2.5-4.9); POTASSIUM 4.2 MEQ/L (3.7-5.4); SODIUM 132 MEQ/L (136-147); TOTAL BILIRUBIN 22.6 MG/DL (0.0-1.0); TOTAL PROTEIN 3.8 G/DL (6.4-8.3); UREA NITROGEN (BUN) 49 mg/dL (9-23)
[2018-03-03 07:50] VITALS: BP 104/67
[2018-03-03 15:00] VITALS: BP 124/87
[2018-03-03 22:56] VITALS: BP 112/59
[2018-03-04 06:28] LABS: ALBUMIN 2.5 G/DL (3.2-4.8); ALKALINE PHOSPHATASE 149 IU/L (3-129); ALT (GPT) 29 IU/L (3-49); AST (GOT) 63 IU/L (2-34); CHLORIDE 106 MEQ/L (99-109); CREATININE 5.5 MG/DL (0.6-1.3); GFR ESTIMATE (CALCULATED) 12 mL/min/ (58.99-99999); GLUCOSE 105 mg/dL (70-99); PHOSPHORUS 4.3 mg/dL (2.5-4.9); POTASSIUM 4.3 MEQ/L (3.7-5.4); SODIUM 136 MEQ/L (136-147); TOTAL BILIRUBIN 22.2 MG/DL (0.0-1.0); TOTAL PROTEIN 3.7 G/DL (6.4-8.3); UREA NITROGEN (BUN) 53 mg/dL (9-23)
[2018-03-04 06:55] VITALS: BP 97/61
[2018-03-04 15:05] VITALS: BP 116/78
[2018-03-04 23:53] VITALS: BP 95/57
[2018-03-05 07:05] VITALS: BP 108/65
[2018-03-05 07:05] LABS: ALBUMIN 2.5 G/DL (3.2-4.8); ALKALINE PHOSPHATASE 143 IU/L (3-129); ALT (GPT) 29 IU/L (3-49); AST (GOT) 53 IU/L (2-34); CHLORIDE 104 MEQ/L (99-109); CREATININE 5.3 MG/DL (0.6-1.3); GFR ESTIMATE (CALCULATED) 12 mL/min/ (58.99-99999); GLUCOSE 98 mg/dL (70-99); POTASSIUM 4.2 MEQ/L (3.7-5.4); SODIUM 134 MEQ/L (136-147); TOTAL BILIRUBIN 21.8 MG/DL (0.0-1.0); TOTAL PROTEIN 3.7 G/DL (6.4-8.3); UREA NITROGEN (BUN) 52 mg/dL (9-23)
[2018-03-05 16:08] VITALS: BP 113/74
[2018-03-05 23:22] VITALS: BP 111/68
[2018-03-06 06:40] LABS: ALBUMIN 3.3 G/DL (3.2-4.8); ALKALINE PHOSPHATASE 137 IU/L (3-129); ALT (GPT) 27 IU/L (3-49); AST (GOT) 47 IU/L (2-34); CHLORIDE 104 MEQ/L (99-109); CREATININE 5.4 MG/DL (0.6-1.3); GFR ESTIMATE (CALCULATED) 12 mL/min/ (58.99-99999); GLUCOSE 109 mg/dL (70-99); POTASSIUM 3.8 MEQ/L (3.7-5.4); SODIUM 136 MEQ/L (136-147); TOTAL BILIRUBIN 21.7 MG/DL (0.0-1.0); TOTAL PROTEIN 4.2 G/DL (6.4-8.3); UREA NITROGEN (BUN) 47 mg/dL (9-23)
[2018-03-06 07:10] VITALS: BP 105/59
[2018-03-06 15:41] VITALS: BP 124/84
[2018-03-07 00:24] VITALS: BP 120/82
[2018-03-07 06:43] LABS: BASOPHIL (%) 0.3 % (0-1); BASOPHIL COUNT 0.1 K/uL (0-0.1); EOSINOPHIL (%) 7.2 % (0-5); EOSINOPHIL COUNT 1.3 K/uL (0-0.3); HEMATOCRIT 30.4 % (38.0-50.0); HEMOGLOBIN 10.6 G/DL (12.5-16.6); IMMATURE GRANULOCYTE (%) 2.2 % (0.0-0.7); LYMPHOCYTE (%) 10.5 % (15-42); MCH 34.8 PG (29.0-34.0); MCHC 34.9 G/DL (30.0-36.0); MCV 99.7 FL (86-99); MONOCYTE (%) 8.9 % (3-12); MONOCYTE COUNT 1.7 K/uL (0-0.8); NEUTROPHIL (%) 70.9 % (45-76); NEUTROPHIL COUNT 13.1 K/uL (1.8-6.4); PLATELET COUNT 277 K/uL (156-360); RBC DIS.WIDTH-CV 15.4 % (11.8-14.6); RBC DIS.WIDTH-SD 55.8 % (39-53); RED BLOOD COUNT 3.05 M/uL (4.00-5.50); WHITE BLOOD COUNT 18.5 K/uL (4.1-10.2)
[2018-03-07 06:53] LABS: INTER. NORMALIZED RATIO 1.7
[2018-03-07 06:55] VITALS: BP 102/65
[2018-03-07 07:08] LABS: ALKALINE PHOSPHATASE 132 IU/L (3-129); ALT (GPT) 35 IU/L (3-49); AST (GOT) 61 IU/L (2-34); CHLORIDE 106 MEQ/L (99-109); CREATININE 5.1 MG/DL (0.6-1.3); GFR ESTIMATE (CALCULATED) 13 mL/min/ (58.99-99999); GLUCOSE 108 mg/dL (70-99); POTASSIUM 3.7 MEQ/L (3.7-5.4); SODIUM 139 MEQ/L (136-147); TOTAL BILIRUBIN 21.7 MG/DL (0.0-1.0); TOTAL PROTEIN 4.1 G/DL (6.4-8.3); UREA NITROGEN (BUN) 43 mg/dL (9-23)
[2018-03-07 07:54] LABS: PTT 37.9 SEC (25-37)
[2018-03-07 08:50] LABS: THYROTROPIN (TSH) 1.9 MIU/L (0.4-5.5)
[2018-03-07] MEDS ORDERED: MIDODRINE HCL5 MG PO (13:50)
[2018-03-07] MEDS ORDERED: BENADRYL25 MG PO (13:51)
[2018-03-07] MEDS ORDERED: Chronulac,Cephulac,E PO (13:51)
[2018-03-07] MEDS ORDERED: NABI650T PO (13:52)
[2018-03-07] MEDS ORDERED: OCTREOTIDE SC (13:53)
[2018-03-07 15:00] VITALS: BP 120/82
== END 2018-03-07 15:08 | disposition short-term general hospital (02) | DRG 441 ==
LOC: 5EAST 15:39 → ENRESERV 15:40 → 5EAST 17:57 → ENPENDDIS 03-07 14:00 → EDPENDDISTM 03-07 15:00 → 5EAST 03-07 15:08
PROVIDERS: Family Medicine Sports Medicine; Internal Medicine; Internal Medicine Nephrology
DX: K76.7 Hepatorenal syndrome (principal); N17.0 Acute kidney failure with tubular necrosis; K70.31 Alcoholic cirrhosis of liver with ascites; K70.11 Alcoholic hepatitis with ascites; D61.818 Other pancytopenia; K72.90 Hepatic failure, unspecified without coma; E87.1 Hypo-osmolality and hyponatremia; E87.2 Acidosis; E83.51 Hypocalcemia; E77.8 Other disorders of glycoprotein metabolism; F05 Delirium due to known physiological condition; K76.6 Portal hypertension; D63.8 Anemia in other chronic diseases classified elsewhere; N18.9 Chronic kidney disease, unspecified; F10.20 Alcohol dependence, uncomplicated; J44.9 Chronic obstructive pulmonary disease, unspecified; K21.9 Gastro-esophageal reflux disease without esophagitis; F32.9 Major depressive disorder, single episode, unspecified; F41.9 Anxiety disorder, unspecified; R26.9 Unspecified abnormalities of gait and mobility; F17.200 Nicotine dependence, unspecified, uncomplicated; Z91.19 Patient's noncompliance with other medical treatment and regimen
CPT/HCPCS: 76770; 80053; 81003; 82140; 82436; 82570; 83735; 83935; 84100; 84156; 84300; 84425 90; 84443; 85025; 85027; 85610; 85730; J2354; J3411; J7030; J7040; J7050; P9047